=== PATIENT | male | born 1975 | race Caucasian/White ===

== ENCOUNTER → 2021-03-03 11:48 | Outpatient (BNVA) | payer OTHER, SELFPAY | PROVIDERS: Family Provider Nurse Practitioner; PCP Nurse Practitioner; Visit Provider Family Medicine | DX: Z20.822 Contact with and (suspected) exposure to COVID-19 (principal) | CPT/HCPCS: 87635 ==

== ENCOUNTER 2021-08-22 08:40 | Outpatient (CLI) | payer OTHER, SELFPAY ==
--- NOTE | 2021-08-22 08:58 | XR_ITS ---
WS: [id number] Thoracic spine, 3 views, 08/22/2021 Clinical Data: RIB PAIN Comparison: None. Findings: No compression fractures are seen. The disc heights are normal. The paravertebral regions are normal. There is osteoarthritis of the thoracic vertebral bodies from T5 through T12. There is a levoscoliosi s. XR/XR thoracic spine 3V* [id number] Impression: 1. 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 2. Negative for thoracic compression fracture.
--- NOTE | 2021-08-22 08:58 | XR_ITS ---
WS: [id number] Left rib detail, 3 views, 08/22/2021 Clinical Data: LEFT RIB PAIN Comparison: None. Findings: There is a fracture of the lateral aspect of the left seventh rib. There is an old healed fracture of the anterior aspect of the left 10th rib. No pneumothorax is seen. There is no subcutaneous emphysem a. No pleural thickening or pleural effusions are present on the left. XR/XR ribs LT 2V* [id number] Impression: 1. Probable new fracture of the lateral aspect of left seventh rib. 2. Old fracture of the anterior aspect of left 10th rib.
== END 2021-08-22 08:41 | disposition home or self-care (01) ==
PROVIDERS: PCP Nurse Practitioner; Visit Provider Chiropractor
DX: R07.81 Pleurodynia (principal); M47.814 Spondylosis without myelopathy or radiculopathy, thoracic region; M41.84 Other forms of scoliosis, thoracic region
CPT/HCPCS: 71100; 72072

== ENCOUNTER 2021-12-08 15:10 | Inpatient (IN) | payer OTHER, SELFPAY ==
[2021-12-08 15:28] VITALS: BMI 24.4
--- NOTE | 2021-12-08 15:33 | PC.NURSE ---
REPORT TO KATYA LEES- ADVISED THE VITALS WERE ATTEMPTED BUT DID NOT OBTAIN PATIENT IS SO RESTLESS AND UNABLE TO BE STILL ENOUGH TO OBTAIN
--- NOTE | 2021-12-08 15:37 | W.ED.ABDPA2 ---
HPI - Abdominal Pain General: Chief Complaint: ER Hold Stated Complaint: colon issue Time Seen by Provider: 12/08/21 15:37 History of Present Illness: HPI narrative: Mr. Gavin is a 46-year-old gentleman with history approximately 3 years ago of surgical resection of colon possibly secondary to diverticulitis who presents to the emergency department due to abdominal pain. Symptom onset was subacute approximately 3 hours prior to arrival without known specific provoking factors. He endorses multiple episodes of nonbilious and nonbloody emesis. He has not had a bowel movement since last night and is not currently passing flatus. Per he has had a few days worth of vomiting in the morning. Overall intensity symptoms is severe. Course has persisted. Denies other infectious symptoms or other focal changes. No other specific known exacerbating relieving factors identified. MD elicited complaint: abdominal pain Pertinent past history: diverticulitis and other Onset (ago): hour(s) Pain Consistency: constant Location: RLQ Severity: severe Quality: cramping and aching Radiation: none Migration to: no migration Exacerbating factors: eating Relieving factors: nothing Associated Symptoms: Reports change in bowel habits, nausea and vomiting Review of Systems General: Reports: 10 or more systems reviewed and unremarkable except in HPI and below GI: Reports: nausea, vomiting and change in bowel habits PFSH ED PFSH: Medical History (Updated 12/12/21 @ 12:27 by Sha Arthur MD) Diverticulitis HLD (hyperlipidemia) HTN (hypertension) Surgical History (Updated 12/12/21 @ 12:26 by Sha Arthur MD) H/O foot surgery Right -- crush injury -- had bone graft placed from hip History of partial colectomy Family History (Updated 12/08/21 @ 18:18 by Blaine Lu MD) Father Cancer Social History (Updated 12/12/21 @ 12:31 by Sha Arthur MD) Smoking and tobacco status: never smoked Alcohol intake: former Physical Exam Const: COMMON NORMALS: alert GENERAL APPEARANCE: in distress (pain) HENMT: COMMON NORMALS: normocephalic and atraumatic HEAD & SCALP: normocephalic and atraumatic THROAT: posterior oropharynx normal Eye: COMMON NORMALS: conjunctivae normal CONJUNCTIVA: Yes conjunctivae normal SCLERA: sclerae normal Neck/C-Spine: COMMON NORMALS: supple GENERAL: Yes trachea midline Resp: COMMON NORMALS: normal respiratory effort and clear to auscultation bilaterally EFFORT & INSPECTION: Yes able to speak in complete sentences and Yes tachypneic AUSCULTATION: clear to auscultation bilaterally Cardio: COMMON NORMALS: regular rhythm RATE: tachycardic RHYTHM: regular rhythm GI: COMMON NORMALS: Soft to palpation PALPATION: Yes Soft to palpation and No Tenderness to palpation present (GI) PERCUSSION: normal to percussion Extremity: GENERAL: Yes normal exam except as noted and No edema Neuro: COMMON NORMALS: moves all extremities SENSORIUM/ORIENTATION: Yes alert and No Orientation impaired Psych: COMMON NORMALS: mental status grossly normal and Normal thought process present THOUGHT PROCESS: Normal thought process present Course ED course: - Patient was seen and evaluated by me at bedside - Patient placed on cardiac monitors, IV access obtained - Initial evaluation notable for fairly significant distress due to abdominal pain. -Fluids, antiemetic, analgesia ordered - Labs notable for leukocytosis. Metabolic panel with evidence of dehydration, metabolic stress as noted in decreased bicarb and increased anion gap. Lipase is elevated. - Imaging notable for pancreatitis without other acute pathology - Upon serial reexamination after treatment the patient was somewhat improved though still remains tachycardic and has moderate abdominal pain to palpation - Based on patient history, evaluation, labs, and imaging as interpreted the most likely cause of the patient's condition is pancreatitis - The results of ED evaluation were discussed with the patient including plan for admission due to requirement for level of care not available if discharged to prevent significant worsening/deterioration. - Hospitalist service contacted and agreed to admit the patient. - Patient was admitted without further deterioration or significant events. Note: Click bubbles or prepopulated lopez in note writing are used for assistance with data collection and billing and are inherently more limited than narrative and other text portions of this note. Please use narrative for additional clinical history and defer to narrative/free test for any case of contradictory information. If information appears in only free text or click bubble it should be considered present or absent as reported. Please contact note scientific technical writer for clarifications of clinical information or contradictory information. MDM is a brief summary, contradictory or erroneous seeming information should be clarified and full note should be reviewed. Vital Signs: Vital signs: Vital Signs Temperature 98.0 F 12/13/21 20:00 Pulse Rate 70 12/13/21 20:00 Respiratory Rate 18 12/13/21 20:00 Blood Pressure 130/69 12/13/21 20:00 Pulse Oximetry 98 12/13/21 20:00 MDM - Abdominal Pain MDM Narrative Medical decision making narrative: 46-year-old gentleman with history of abdominal surgeries presenting with severe abdominal pain. ED evaluation reveals pancreatitis. Despite multiple rounds of medications unable to adequately control symptoms for discharge. Patient will be admitted to the hospital for further management of pancreatitis with severe symptoms. Medical Records Attestation: I reviewed the patient's medical records. Lab Data Attestation: I reviewed the patient's lab results. Result diagrams: 12/13/21 04:29 12/13/21 04:29 Labs: Lab Results 12/08/21 12/08/21 12/08/21 16:18 16:18 17:22 WBC 12.6 10^3/uL H 10^3/uL (4.0-10.0) RBC 3.99 10^6/uL L 10^6/uL (4.1-5.3) Hgb 15.8 g/dL g/dL (11.7-16.6) Hct 43.1 % % (42.0-52.0) MCV 108.0 fl H fl (80-94) MCH 39.6 pg H pg (28.0-34.0) MCHC 36.7 g/dL H g/dL (30.0-36.0) RDW 11.2 % L % (12.1-15.1) Plt Count 323 10^3/cmm 10^3/cmm (130-400) MPV 9.8 fL fL (7.4-10.4) Neut % (Auto) 86.3 % % Lymph % (Auto) 6.3 % % [place] % (Auto) 6.6 % % Eos % (Auto) 0.0 % % Baso % (Auto) 0.2 % % Neut # (Auto) 10.86 10^3/uL H 10^3/uL (1.8-7.7) Lymph # (Auto) 0.8 10^3/uL 10^3/uL (0.8-4.8) [place] # (Auto) 0.8 10^3/uL 10^3/uL (0.2-0.9) Eos # (Auto) 0.0 10^3/uL 10^3/uL (0.0-0.8) Baso # (Auto) 0.0 10^3/uL 10^3/uL (0.0-0.1) Nucleated RBC % (auto) 0 % % Nucleated RBCs # 0.0 /100WBC /100WBC Sodium 131 mmol/L L mmol/L (136-145) Potassium 4.1 mmol/L mmol/L (3.5-5.1) Chloride 95 mmol/L L mmol/L (98-107) Carbon Dioxide 13 mmol/L L mmol/L (22-29) Anion Gap 27.1 H (5-19) BUN 9 mg/dL mg/dL (6-20) Creatinine 1.1 mg/dL mg/dL (0.7-1.2) GFR Calculation 71.4 mL/min L mL/min (90-130) Glucose 125 mg/dL H mg/dL (65-115) Calculated Osmolality 272 mOsm/kg L mOsm/kg (285-295) Lactate Calcium 10.2 mg/dL mg/dL (8.5-10.5) Total Bilirubin 1.1 mg/dL mg/dL (0.15-1.2) AST 28 U/L U/L (0-40) ALT 26 U/L U/L (0-41) Alkaline Phosphatase 66 IU/L IU/L (40-130) Total Protein 6.6 g/dL g/dL (6.6-8.7) Albumin 4.1 g/dL g/dL (3.5-5.2) Globulin 2.5 g/dL g/dL (1.3-4.6) Lipase 424 U/L H U/L (13-60) Urine Color Urine Appearance Urine pH Ur Specific [place] Urine Protein Urine Glucose (UA) Urine Ketones Urine Blood Urine Nitrate Urine Bilirubin Urine Urobilinogen Ur Leukocyte Esterase SARS-CoV-2 Ag (Rapid) Negative (Negative) 12/08/21 12/08/21 17:22 17:44 WBC RBC Hgb Hct MCV MCH MCHC RDW Plt Count MPV Neut % (Auto) Lymph % (Auto) [place] % (Auto) Eos % (Auto) Baso % (Auto) Neut # (Auto) Lymph # (Auto) [place] # (Auto) Eos # (Auto) Baso # (Auto) Nucleated RBC % (auto) Nucleated RBCs # Sodium Potassium Chloride Carbon Dioxide Anion Gap BUN Creatinine GFR Calculation Glucose Calculated Osmolality Lactate 3.0 mmol/L H mmol/L (0.5-2.2) Calcium Total Bilirubin AST ALT Alkaline Phosphatase Total Protein Albumin Globulin Lipase Urine Color Dark yellow (Yellow) Urine Appearance Clear (CLEAR) Urine pH 7 (5-7) Ur Specific [place] 1.005 (1.005-1.030) Urine Protein Neg (Negative) Urine Glucose (UA) Norm (Normal) Urine Ketones 1+ H (Negative) Urine Blood Neg (Negative) Urine Nitrate Negative (Negative) Urine Bilirubin Neg (Negative) Urine Urobilinogen 1 mg/dL H mg/dL (Negative) Ur Leukocyte Esterase Negative (Negative) SARS-CoV-2 Ag (Rapid) Discharge Plan Discharge Patient Disposition: Placed in Observation Admit Provider: Blaine Lu Clinical Impression: Pancreatitis, Abdominal pain, Leukocytosis, Tachycardia Coding Level of Care Code ED Service Center Coordinator for Chg Fwd Exam Comprehensive
[2021-12-08 15:47] VITALS: BP 176/126; PULSE 110; RESP 30; TEMP 36.7; O2SAT 100
--- NOTE | 2021-12-08 15:50 | CTR_ITS ---
PROCEDURE INFORMATION: Exam: CT Abdomen And Pelvis With Contrast Exam date and time: 12/08/2021 3:50 PM Age: 46 years old Clinical indication: Abdominal pain; Generalized; Prior surgery; Surgery date: 6+ months; Surgery type: Partial colectomy; Patient HX: Abd pain x 1 day n, v; Additional info: Abdominal pain, n/v TECHNIQUE: Imaging protocol: Computed tomography of the abdomen and pelvis with contrast. Radiation optimization: All CT scans at this facility use at least one of these dose optimization techniques: automated exposure control; mA and/or kV adjustment per patient size (includes targeted exams where dose is matched to clinical indication); or iterative reconstruction. Contrast material: OMNI 300; Contrast volume: 95 ml; Contrast route: INTRAVENOUS (IV); COMPARISON: CT abdomen pelvis w con* [id number] 05/31/2018 9:05 AM RADIATION DOSE METRICS: Total DLP (mGy-cm): 1754.08 FINDINGS: Lungs: Calcified granuloma in the left upper lobe. Heart: Trace pericardial effusion. Liver: Diffuse fatty infiltration of the liver. Calcified granulomas. Gallbladder and bile ducts: Fluid distended gallbladder. No visible stones or wall thickening. The bile ducts are normal. Pancreas: The uncinate process and pancreatic head appear edematous with peripancreatic fat stranding. The body and tail of the pancreas appear normal. Stable benign calcification. Spleen: Calcified granulomas in the spleen. Adrenal glands: Normal. No mass. Kidneys and ureters: Cortical lesion in the left kidney is too small to characterize but is most likely a cyst. No follow-up imaging is recommended. The kidneys are otherwise normal. No calculus or hydronephrosis. Stomach and bowel: Partial resection of the sigmoid colon with sutures. Diverticulosis of the colon. No evidence for diverticulitis. The stomach and small bowel are unremarkable. No wall thickening or obstruction. Appendix: The appendix is visualized and is normal. Intraperitoneal space: No pneumoperitoneum. Retroperitoneal space: Fluid posterior to the duodenum and extending into the retroperitoneum and Casillas's space. Vasculature: Multiple calcified phleboliths in the pelvis. Lymph nodes: Unremarkable. No enlarged lymph nodes. Urinary bladder: Unremarkable as visualized. Reproductive: Coarse calcifications in a normal sized prostate. Bones/joints: Degenerative changes in the spine. No fracture. Old left rib fracture. Soft tissues: Umbilical hernia containing fat and a short loop of nonobstructed small bowel. CT/CT abdomen pelvis w con* [id number] IMPRESSION: 1. Findings are suspicious for acute pancreatitis involving the pancreatic head with retroperitoneal fluid and stranding. Less likely, this could represent duodenitis. Clinical correlation is recommended. 2. Diverticulosis of the colon without diverticulitis. COMMENTS: Consistent with the [employer]'s Incidental Findings Committee white paper (J Am Tenisha Radiol 2018): Any incidental renal lesion less than 1 cm or classified as too small to characterize, or any incidental cystic renal lesion characterized as simple-appearing, is likely benign. No follow-up imaging is recommended for these lesions per consensus recommendations based on imaging criteria.
[2021-12-08] MEDS: morphine 4 mg/mL SDV 1 mL IVP ×3 (16:18→20:48)
[2021-12-08] MEDS: sodium chloride 0.9% 1,000 ML 999 ML IV (16:18)
[2021-12-08] MEDS: ondansetron 2 mg/ML SDV 2 mL 4 MG IVP (16:18)
[2021-12-08 16:27] LABS: Basophils % 0.2 %; Hematocrit 43.1 % (42.0-52.0); Hemoglobin 15.8 g/dL (11.7-16.6); Lymphocytes # 0.8 10^3/uL (0.8-4.8); Lymphocytes % 6.3 %; Mean Corpuscular HGB Conc 36.7 g/dL (30.0-36.0); Mean Corpuscular Hemoglobin 39.6 pg (28.0-34.0); Mean Platelet Volume 9.8 fL (7.4-10.4); Monocytes # 0.8 10^3/uL (0.2-0.9); Monocytes % 6.6 %; Neutrophils # 10.86 10^3/uL (1.8-7.7); Neutrophils % 86.3 %; Nucleated Red Blood Cells % 0 %; Platelet Count 323 10^3/cmm (130-400); Red Blood Count 3.99 10^6/uL (4.1-5.3); Red Cell Distribution Width 11.2 % (12.1-15.1); White Blood Count 12.6 10^3/uL (4.0-10.0)
[2021-12-08 16:42] VITALS: BP 207/132; PULSE 110; RESP 28; O2SAT 100
[2021-12-08 16:44] LABS: Albumin Level 4.1 g/dL (3.5-5.2); Alkaline Phosphatase 66 IU/L (40-130); Anion Gap 27.1 (5-19); Aspartate Amino Transferase 28 U/L (0-40); Blood Urea Nitrogen 9 mg/dL (6-20); Calcium 10.2 mg/dL (8.5-10.5); Carbon Dioxide 13 mmol/L (22-29); Chloride 95 mmol/L (98-107); Globulin 2.5 g/dL (1.3-4.6); Glomerular Filtration Rate 71.4 mL/min (90-130); Glucose 125 mg/dL (65-115); Osmolality Calculated 272 mOsm/kg (285-295); Potassium 4.1 mmol/L (3.5-5.1); Sodium 131 mmol/L (136-145); Total Bilirubin 1.1 mg/dL (0.15-1.2); Total Protein 6.6 g/dL (6.6-8.7)
[2021-12-08] MEDS: iohexol 300 mg/mL 100 mL Btl IV (16:50)
[2021-12-08 16:55] LABS: Alanine Aminotransferase 26 U/L (0-41)
[2021-12-08 16:59] LABS: Lipase 424 U/L (13-60)
[2021-12-08 17:56] LABS: Add Urine Microscopic? NO; Charge for UA Resulting for Rev
[2021-12-08] MEDS: sodium chloride 0.9% 1,000 ML 125 ML IV (18:06)
--- NOTE | 2021-12-08 18:16 | PM.HP ---
Providers/Chief Complaint Primary Care Provider: KORTNEY Genao Chief Complaint: colon issue History of Present Illness Ozzie aGvin is a 46 year old male with a past past medical history of diverticulitis status post colectomy, who presents [facility] due to a few day history of abdominal pain, nausea, vomiting, feeling unwell. Patient tells me that for the last few days he has had diffuse abdominal pain, nausea, vomiting, feeling unwell. Last bowel movement was last night, he tells me that it was dark-colored. No lightheadedness, dizziness, chest pain, palpitations. His last drink of alcohol was a month ago. No recent history of steroid use. History of cholelithiasis. No diarrhea. No history of food poisoning. Has a history of hypertension, is on lisinopril. No fevers, no chills. Review of Systems Const: Reports: fatigue and malaise; Denies: fever(s) or chills Eyes: Denies: change in vision or blurry vision ENMT: Denies: nasal congestion Card: Denies: chest pain, palpitations or irregular heart rhythm Resp: Denies: dyspnea, productive cough, non-productive cough or wheezing GI: Reports: abdominal pain and nausea; Denies: vomiting, hematemesis, diarrhea, constipation, hematochezia or melena : Denies: flank pain, difficulty urinating, dysuria or urinary frequency Musc: Denies: neck pain or back pain Skin/Breast: Denies: rash Neuro: Denies: headache(s), dizziness or vertigo Psych: Denies: anxiety or depression Endo: Denies: polyuria Medications/Allergies Home Medications Medication Instructions Recorded Confirmed Last Taken Type [id number]-acetaminophen 2 cap PO BEDTIME PRN 12/08/21 12/08/21 12/07/21 History [NyQuil Liquicaps] lisinopril 10 mg PO DAILY 12/08/21 12/08/21 12/08/21 History omeprazole 20 mg PO DAILY 12/08/21 12/08/21 12/08/21 History Allergies Allergy/AdvReac Type Severity Reaction Status Date / Time No Known Allergies Allergy Verified 12/08/21 15:28 PFSH Acute PFSH: Medical History (Updated 12/08/21 @ 17:57 by Deshaun Alejandra MD) Diverticulitis HLD (hyperlipidemia) HTN (hypertension) Surgical History (Updated 12/08/21 @ 15:55 by Deshaun Alejandra MD) H/O foot surgery History of partial colectomy Family History (Updated 12/08/21 @ 18:18 by Blaine Lu MD) Father Cancer Social History (Updated 12/08/21 @ 15:55 by Deshaun Alejandra MD) Smoking and tobacco status: never smoked Vitals/I&O/Wt Last Vital Signs Temp 98.1 F 12/08/21 15:47 Pulse 110 H 12/08/21 16:42 Resp 28 H 12/08/21 16:42 BP 207/132 12/08/21 16:42 Pulse Ox 100 12/08/21 16:42 12/08/21 12/08/21 12/08/21 06:59 14:59 22:59 Intake Total 1000 / 1000 Balance 1000 / 1000 Weight last 48 hrs Weight 81.647 kg Physical Exam Const: COMMON NORMALS: no acute distress and patient oriented x3 GENERAL APPEARANCE: cooperative and comfortable HENMT: COMMON NORMALS: normocephalic HEAD & SCALP: normocephalic Eye: COMMON NORMALS: Equal, round and reactive pupils present and EOMs intact bilaterally GENERAL EYE: appearance normal, both eyes and all related structures PUPIL: Yes Equal, round and reactive pupils present Neck/C-Spine: COMMON NORMALS: full ROM and no lymphadenopathy THYROID: Thyroid normal Lymph: LYMPHATIC: no lymphadenopathy noted Resp: COMMON NORMALS: normal respiratory effort, No retractions, No use of accessory muscles and clear to auscultation bilaterally AUSCULTATION: clear to auscultation bilaterally Cardio: COMMON NORMALS: regular rate, regular rhythm, S1 normal heart sound present, S2 normal heart sound present, No gallops present (Cardio), No clicks present (Cardio) and No murmurs present (Cardio) RATE: regular rate RHYTHM: regular rhythm HEART SOUNDS: S1 normal heart sound present and S2 normal heart sound present GI: INSPECTION: Yes normal to inspection and Yes abdominal distension AUSCULTATION: Yes Hyperactive bowel sounds present PALPATION: Yes Tenderness to palpation present (GI) (Diffuse abdominal tenderness) Extremity: COMMON NORMALS: normal to inspection, full ROM and no pedal edema Neuro: COMMON NORMALS: patient oriented x3, CN's II-XII intact bilaterally, moves all extremities and no focal motor deficits Psych: COMMON NORMALS: mental status grossly normal, Normal thought process present and cooperative THOUGHT PROCESS: Normal thought process present Data : 12/08/21 16:18 12/08/21 16:18 A&P Assessment and plan (1) Pancreatitis: Acute pancreatitis, duodenitis Admit to general medical floors -N.p.o. -IV fluids -Morphine for pain control -Zosyn for antibiotic coverage -Serial abdominal exams -Stool studies -Full code -Lovenox for DVT prophylaxis Hypertension, elevated blood pressure likely secondary to pain, labetalol as needed for hypertension Hyponatremia, secondary to dehydration, IV fluids Status: Acute (2) Tachycardia: Status: Acute (3) HLD (hyperlipidemia): Status: Acute (4) HTN (hypertension): Status: Acute Attestations Medical Necessity Statement*: Patient requires hospitalization for acute pancreatitis, outpatient with observation Coding Level of Care Code Acute Volcanology Teacher for [facility] Fwd Diagnoses Pancreatitis K85.90 Tachycardia R00.0 HLD (hyperlipidemia) E78.5 HTN (hypertension) I10
[2021-12-08 18:21] LABS: SARS Covid-2 Antigen Negative (Negative)
[2021-12-08 18:30] VITALS: BP 163/97; PULSE 113; RESP 20; O2SAT 97
[2021-12-08 18:32] LABS: Bilirubin Urine Neg (Negative); Blood Urine Neg (Negative); Glucose Urine UA Norm (Normal); Ketones Urine 1+ (Negative); Leukocyte Esterase Urine Negative (Negative); Nitrate Urine Negative (Negative); Protein Urine Neg (Negative); Specific Gravity, Urine 1.005 (1.005-1.030); Urine Appearance Clear (CLEAR); Urine Color Dark Yellow (Yellow); Urobilinogen Urine 1 mg/dL (Negative); pH Urine 7 (5-7)
[2021-12-08 20:48] VITALS: RESP 18
[2021-12-08] MEDS: piperacillin-tazobactam 3.375 GM in sodium chloride 0.9% (plus) 50 ML IV (23:51)
[2021-12-08] MEDS: pantoprazole 40 mg SDV IVP (23:51)
[2021-12-08] MEDS: enoxaparin 40 mg/0.4 mL Syringe SUBCUT (23:51)
[2021-12-09] VITALS (10 sets, daily range): BP systolic 135–163; BP diastolic 88–97; PULSE 70–90; RESP 16–22; TEMP 37.1–37.3; O2SAT 97–99
--- NOTE | 2021-12-09 01:49 | PC.NURSE ---
pt resting quietly
[2021-12-09] MEDS: sodium chloride 0.9% 1,000 ML 125 ML IV (03:43)
[2021-12-09] MEDS: piperacillin-tazobactam 3.375 GM in sodium chloride 0.9% (plus) 50 ML IV ×3 (06:22→22:27)
--- NOTE | 2021-12-09 06:54 | PC.NURSE ---
report given to Laurie LEES
[2021-12-09 07:26] LABS: Basophils % 0.2 %; Eosinophils # 0.1 10^3/uL (0.0-0.8); Eosinophils % 0.8 %; Hemoglobin 14.6 g/dL (11.7-16.6); Lymphocytes # 0.8 10^3/uL (0.8-4.8); Lymphocytes % 9.2 %; Mean Corpuscular HGB Conc 35.6 g/dL (30.0-36.0); Mean Corpuscular Hemoglobin 40.8 pg (28.0-34.0); Mean Corpuscular Volume 114.5 fl (80-94); Mean Platelet Volume 9.6 fL (7.4-10.4); Monocytes # 0.7 10^3/uL (0.2-0.9); Monocytes % 7.9 %; Neutrophils # 6.88 10^3/uL (1.8-7.7); Neutrophils % 81.5 %; Nucleated Red Blood Cells % 0 %; Platelet Count 229 10^3/cmm (130-400); Red Blood Count 3.58 10^6/uL (4.1-5.3); Red Cell Distribution Width 11.6 % (12.1-15.1); White Blood Count 8.5 10^3/uL (4.0-10.0)
[2021-12-09 07:43] LABS: Alanine Aminotransferase 17 U/L (0-41); Albumin Level 3.6 g/dL (3.5-5.2); Alkaline Phosphatase 57 IU/L (40-130); Anion Gap 15.5 (5-19); Aspartate Amino Transferase 15 U/L (0-40); Blood Urea Nitrogen 10 mg/dL (6-20); C Reactive Protein 30.8 mg/L (0.0-4.9); Calcium 8.4 mg/dL (8.5-10.5); Carbon Dioxide 22 mmol/L (22-29); Chloride 102 mmol/L (98-107); Glomerular Filtration Rate 79.8 mL/min (90-130); Glucose 107 mg/dL (65-115); Osmolality Calculated 280 mOsm/kg (285-295); Potassium 4.5 mmol/L (3.5-5.1); Sodium 135 mmol/L (136-145); Total Bilirubin 1.5 mg/dL (0.15-1.2); Total Protein 5.6 g/dL (6.6-8.7)
[2021-12-09 07:45] LABS: Lipase 234 U/L (13-60)
--- NOTE | 2021-12-09 09:42 | PM.PN ---
Subjective Subjective: Interval history: Patient is doing maybe a little bit better. Still having some significant abdominal pain. No nausea or vomiting. No fevers or chills. Medications: Reviewed: Yes Medication Review Details: Current Medications Enoxaparin Sodium (Enoxaparin 40 Mg/0.4 Ml Syringe) 40 mg SUBCUT Q24H [facility] Last Admin: 12/08/21 23:51 Dose: 40 mg Documented by: Sodium Chloride (Sodium Chloride 0.9%) 1,000 mls @ 125 mls/hr IV .Q8H [facility] Stop: 12/09/21 17:59 Last Admin: 12/09/21 03:43 Dose: 125 mls/hr Documented by: Sodium Chloride (Sodium Chloride 0.9%) 1,000 mls @ 75 mls/hr IV .[id number] [facility] Piperacillin Sod/Tazobactam (Sod 3.375 gm/ Sodium Chloride) 50 mls @ 12.5 mls/hr IV Q8H [facility]; Protocol Last Admin: 12/09/21 06:22 Dose: 12.5 mls/hr Documented by: Labetalol HCl (Labetalol 5 Mg/Ml Sdv 20ml) 10 mg IVP Q4H PRN PRN Reason: FOR SBP>180 or DBP>180 hold if hr<60 Morphine Sulfate (Morphine 4 Mg/Ml Sdv 1 Ml) 4 mg IVP Q1H PRN PRN Reason: pain Last Admin: 12/08/21 20:48 Dose: 4 mg Documented by: Ondansetron HCl (Ondansetron 2 Mg/Ml Sdv 2 Ml) 4 mg IVP Q8H PRN PRN Reason: vomiting, or N/V if npo Pantoprazole Sodium (Pantoprazole 40 Mg Sdv) 40 mg IVP Q12H [facility] Last Admin: 12/08/21 23:51 Dose: 40 mg Documented by: Vitals/I&O/Wt Last Vital Signs Temp 98.1 F 12/08/21 15:47 Pulse 77 12/09/21 07:23 Resp 20 H 12/09/21 07:23 BP 152/93 12/09/21 07:23 Pulse Ox 98 12/09/21 07:23 12/08/21 12/09/21 12/09/21 22:59 06:59 14:59 Intake Total 1000 / 2050.000 1050.000 / 2050.000 Balance 1000 / 2050.000 1050.000 / 2050.000 Weight last 48 hrs Weight 180 lb Physical Exam Narrative: EXAM NARRATIVE: General: No acute distress, Alert. Well nourished. Heart: Regular rate and rhythm. No murmurs, rubs or gallops. Normal capillary refill. Lungs: Clear to auscultation. No wheezes, rhonchi or rales. Abdomen: Positive bowel sounds. Has some significant abdominal pain in the right lower quadrant and epigastric area, non-distended. No hepatosplenomegaly. No gaurding or rebound. Extremities: No clubbing, cyanosis, or edema. Negative Yair's Data : 12/09/21 07:07 12/09/21 07:07 A&P Assessment and plan (1) Pancreatitis: - 46-year-old gentleman admitted with acute pancreatitis most likely secondary to alcohol, although it has been a couple of weeks since he drank according to his report. No evidence of an obstructed duct on CT scan. He is improving some. Electrolytes have normalized. CBC is normal. Still having significant pain. Lipase is improved some. We will continue with IV fluids. IV pain medications. Keep him n.p.o. for now. Continue with IV antibiotics Status: Acute (2) HTN (hypertension): Status: Acute Attestations Medical Necessity Statement*: 46-year-old gentleman with pancreatitis requiring continued inpatient IV treatments and monitoring. Coding Level of Care Code Acute Cloak Room Attendant for [facility] Diagnoses Pancreatitis K85.90 HTN (hypertension) I10
[2021-12-09] MEDS: morphine 4 mg/mL SDV 1 mL IVP ×5 (10:20→22:27)
[2021-12-09] MEDS: pantoprazole 40 mg SDV IVP ×2 (10:21→22:27)
[2021-12-09] MEDS: sodium chloride 0.9% 1,000 ML 75 ML IV ×2 (12:00→22:38)
[2021-12-09] MEDS: ondansetron 2 mg/ML SDV 2 mL 4 MG IVP (18:07)
[2021-12-09] MEDS: enoxaparin 40 mg/0.4 mL Syringe SUBCUT (22:27)
[2021-12-10] VITALS (13 sets, daily range): BP systolic 149–167; BP diastolic 87–95; PULSE 77–89; RESP 16–24; TEMP 36.4–37; O2SAT 95–100
[2021-12-10] MEDS: morphine 4 mg/mL SDV 1 mL IVP ×7 (00:56→21:24)
[2021-12-10 05:31] LABS: Basophils % 0.4 %; Eosinophils # 0.1 10^3/uL (0.0-0.8); Eosinophils % 1.2 %; Hematocrit 40.9 % (42.0-52.0); Hemoglobin 14.2 g/dL (11.7-16.6); Lymphocytes # 0.8 10^3/uL (0.8-4.8); Lymphocytes % 9.2 %; Mean Corpuscular HGB Conc 34.7 g/dL (30.0-36.0); Mean Corpuscular Hemoglobin 39.8 pg (28.0-34.0); Mean Corpuscular Volume 114.6 fl (80-94); Mean Platelet Volume 9.9 fL (7.4-10.4); Monocytes # 0.7 10^3/uL (0.2-0.9); Monocytes % 7.5 %; Neutrophils # 7.43 10^3/uL (1.8-7.7); Nucleated Red Blood Cells % 0 %; Platelet Count 239 10^3/cmm (130-400); Red Blood Count 3.57 10^6/uL (4.1-5.3); Red Cell Distribution Width 11.2 % (12.1-15.1); White Blood Count 9.2 10^3/uL (4.0-10.0)
[2021-12-10] MEDS: piperacillin-tazobactam 3.375 GM in sodium chloride 0.9% (plus) 50 ML IV ×3 (05:32→21:17)
[2021-12-10 05:54] LABS: Alanine Aminotransferase 14 U/L (0-41); Albumin Level 3.5 g/dL (3.5-5.2); Alkaline Phosphatase 58 IU/L (40-130); Aspartate Amino Transferase 16 U/L (0-40); Blood Urea Nitrogen 11 mg/dL (6-20); C Reactive Protein 78.5 mg/L (0.0-4.9); Calcium 9.3 mg/dL (8.5-10.5); Carbon Dioxide 19 mmol/L (22-29); Chloride 100 mmol/L (98-107); Creatinine Clr Calc Pharmacy 112.4711; Globulin 2.5 g/dL (1.3-4.6); Glomerular Filtration Rate 90.1 mL/min (90-130); Glucose 93 mg/dL (65-115); Lipase 129 U/L (13-60); Magnesium 1.9 mg/dL (1.7-2.3); Osmolality Calculated 277 mOsm/kg (285-295); Phosphorus 3.8 mg/dL (2.5-4.5); Sodium 134 mmol/L (136-145)
--- NOTE | 2021-12-10 07:13 | XRR_ITS ---
PROCEDURE INFORMATION: Exam: XR Abdomen Exam date and time: 12/10/2021 7:13 AM Age: 46 years old Clinical indication: Abdominal pain; Generalized; Prior surgery; Surgery date: 6+ months; Surgery type: Colectomy; Additional info: Abdominal pain abdominal pain TECHNIQUE: Imaging protocol: XR of the abdomen. Views: Frontal supine view of the abdomen. 1 View. COMPARISON: CT abdomen pelvis w con* [id number] 12/08/2021 4:51 PM FINDINGS: Gastrointestinal tract: Mild diffuse distention of the small bowel loops and colon. The small bowel loops measure up to 2.8 cm in transverse dimension. Bones/joints: Unremarkable. XR/XR KUB portable [id number] IMPRESSION: Mild distension of the small bowel and colon. Given findings on recent CT this most likely relates to ileus.
--- NOTE | 2021-12-10 07:34 | P.PN_ITS ---
Subjective Subjective: Interval history: Patient was doing decent enough yesterday but seems to be doing worse this morning. He thinks he is really constipated needs to have a bowel movement. Asking for some laxatives. Having quite a bit of pain and discomfort. No nausea or vomiting. No fevers or chills. Medications: Reviewed: Yes Medication Review Details: Current Medications Enoxaparin Sodium (Enoxaparin 40 Mg/0.4 Ml Syringe) 40 mg SUBCUT Q24H [facility] Last Admin: 12/08/21 23:51 Dose: 40 mg Documented by: Sodium Chloride (Sodium Chloride 0.9%) 1,000 mls @ 125 mls/hr IV .Q8H [facility] Stop: 12/09/21 17:59 Last Admin: 12/09/21 03:43 Dose: 125 mls/hr Documented by: Sodium Chloride (Sodium Chloride 0.9%) 1,000 mls @ 75 mls/hr IV .[id number] [facility] Piperacillin Sod/Tazobactam (Sod 3.375 gm/ Sodium Chloride) 50 mls @ 12.5 mls/hr IV Q8H [facility]; Protocol Last Admin: 12/09/21 06:22 Dose: 12.5 mls/hr Documented by: Labetalol HCl (Labetalol 5 Mg/Ml Sdv 20ml) 10 mg IVP Q4H PRN PRN Reason: FOR SBP>180 or DBP>180 hold if hr<60 Morphine Sulfate (Morphine 4 Mg/Ml Sdv 1 Ml) 4 mg IVP Q1H PRN PRN Reason: pain Last Admin: 12/08/21 20:48 Dose: 4 mg Documented by: Ondansetron HCl (Ondansetron 2 Mg/Ml Sdv 2 Ml) 4 mg IVP Q8H PRN PRN Reason: vomiting, or N/V if npo Pantoprazole Sodium (Pantoprazole 40 Mg Sdv) 40 mg IVP Q12H [facility] Last Admin: 12/08/21 23:51 Dose: 40 mg Documented by: Vitals/I&O/Wt Last Vital Signs Temp 97.6 F 12/10/21 07:33 Pulse 83 12/10/21 07:33 Resp 18 12/10/21 07:33 BP 158/87 12/10/21 07:33 Pulse Ox 96 12/10/21 07:33 12/09/21 12/10/21 12/10/21 22:59 06:59 14:59 Intake Total 575 / 1765 140 / 1765 Output Total 300 / 500 200 / 500 Balance 275 / 1265 -60 / 1265 Weight last 48 hrs Weight 180 lb Physical Exam Narrative: EXAM NARRATIVE: General: No acute distress, Alert. Well nourished. Heart: Regular rate and rhythm. No murmurs, rubs or gallops. Normal capillary refill. Lungs: Clear to auscultation. No wheezes, rhonchi or rales. Abdomen: Positive bowel sounds. Abdomen is to this morning and more distended. No rebound or guarding.. No hepatosplenomegaly. No gaurding. Extremities: No clubbing, cyanosis, or edema. Negative Yair's Data : 12/10/21 04:41 12/10/21 04:41 A&P Assessment and plan (1) Pancreatitis: - 46-year-old gentleman admitted with acute pancreatitis most likely secondary to alcohol, although it has been a couple of weeks since he drank according to his report. -Lipase and vital signs all seem to be improved this morning. Clinically though his abdomen does seem to be a bit more distended and more tender. He is more uncomfortable. May just be from constipation but we will go ahead and get a KUB this morning to look for any signs of obstruction. Also proceed with milk of magnesia and enemas for constipation. Hold off on advancing his diet at this time. Continue with IV pain medications. Status: Acute (2) HTN (hypertension): Status: Acute Attestations Medical Necessity Statement*: Patient is a requiring continued inpatient treatment and monitoring. Coding Level of Care Code Acute Surgical Consultant for [facility] Diagnoses Pancreatitis K85.90 HTN (hypertension) I10
[2021-12-10] MEDS: magnesium hydroxide 30 mL UDC PO ×2 (07:50→18:27)
[2021-12-10] MEDS: pantoprazole 40 mg SDV IVP ×2 (07:50→21:16)
[2021-12-10] MEDS: sodium chloride 0.9% 1,000 ML 75 ML IV ×3 (07:51→23:46)
[2021-12-10 11:56] LABS: Bilirubin Urine 1+ (Negative); Blood Urine Neg (Negative); Glucose Urine UA Norm (Normal); Ketones Urine 1+ (Negative); Leukocyte Esterase Urine Negative (Negative); Nitrate Urine Negative (Negative); Protein Urine 1+ (Negative); Urine Appearance Turbid (CLEAR); Urine Color Orange (Yellow); Urobilinogen Urine 1 mg/dL (Negative); pH Urine 5 (5-7)
[2021-12-10 11:57] LABS: Add Urine Culture? No; Amorphous Sediment Urine 4+ /hpf; Bacteria Urine TRACE /hpf
[2021-12-10] MEDS: Fleet Enema 133 mL Enema PR (13:27)
[2021-12-10] MEDS: enoxaparin 40 mg/0.4 mL Syringe SUBCUT (21:17)
[2021-12-10] MEDS: ondansetron 2 mg/ML SDV 2 mL 4 MG IVP (21:24)
[2021-12-11] VITALS (8 sets, daily range): BP systolic 144–163; BP diastolic 67–91; PULSE 77–92; RESP 17–20; TEMP 36.6–37; O2SAT 97–99
[2021-12-11] MEDS: morphine 4 mg/mL SDV 1 mL IVP ×3 (01:50→12:03)
--- NOTE | 2021-12-11 02:31 | PC.NURSE ---
Pt has had approx. 150 mls light green/mucous emesis. States he has drainage down his throat & is making him sick to his stomach. Also urinated only 50 mls harriet colored urine in urinal. Bladder scan reveals approx 100 mls in bladder.
[2021-12-11 05:56] LABS: Basophils % 0.4 %; Eosinophils # 0.1 10^3/uL (0.0-0.8); Hematocrit 36.6 % (42.0-52.0); Hemoglobin 12.6 g/dL (11.7-16.6); Lymphocytes # 0.8 10^3/uL (0.8-4.8); Lymphocytes % 9.8 %; Mean Corpuscular HGB Conc 34.4 g/dL (30.0-36.0); Mean Corpuscular Hemoglobin 40.1 pg (28.0-34.0); Mean Corpuscular Volume 116.6 fl (80-94); Monocytes # 0.7 10^3/uL (0.2-0.9); Monocytes % 8.7 %; Neutrophils # 6.62 10^3/uL (1.8-7.7); Neutrophils % 79.7 %; Nucleated Red Blood Cells % 0 %; Platelet Count 235 10^3/cmm (130-400); Red Blood Count 3.14 10^6/uL (4.1-5.3); Red Cell Distribution Width 11.6 % (12.1-15.1); White Blood Count 8.3 10^3/uL (4.0-10.0)
[2021-12-11] MEDS: ondansetron 2 mg/ML SDV 2 mL 4 MG IVP ×2 (06:07→16:07)
[2021-12-11] MEDS: piperacillin-tazobactam 3.375 GM in sodium chloride 0.9% (plus) 50 ML IV ×3 (06:08→22:26)
[2021-12-11 06:17] LABS: Alanine Aminotransferase 12 U/L (0-41); Albumin Level 3.2 g/dL (3.5-5.2); Alkaline Phosphatase 47 IU/L (40-130); Aspartate Amino Transferase 13 U/L (0-40); Blood Urea Nitrogen 11 mg/dL (6-20); C Reactive Protein 63.4 mg/L (0.0-4.9); Calcium 9.1 mg/dL (8.5-10.5); Carbon Dioxide 18 mmol/L (22-29); Chloride 104 mmol/L (98-107); Globulin 2.4 g/dL (1.3-4.6); Glomerular Filtration Rate 103.2 mL/min (90-130); Glucose 85 mg/dL (65-115); Lipase 79 U/L (13-60); Magnesium 2.3 mg/dL (1.7-2.3); Osmolality Calculated 283 mOsm/kg (285-295); Phosphorus 3.4 mg/dL (2.5-4.5); Sodium 137 mmol/L (136-145); Total Bilirubin 1.2 mg/dL (0.15-1.2); Total Protein 5.6 g/dL (6.6-8.7)
[2021-12-11] MEDS: sodium chloride 0.9% 1,000 ML 150 ML IV ×3 (06:56→22:26)
[2021-12-11] MEDS: pantoprazole 40 mg SDV IVP ×2 (09:20→20:56)
[2021-12-11] MEDS: magnesium citrate Btl 296 mL 148 ML PO (13:29)
--- NOTE | 2021-12-11 17:02 | P.PN_ITS ---
Subjective Subjective: Interval history: Wishes to advance diet today to clears. Passing flatus, had 2 small BM overnight, wishes to avoid morphine Medications: Reviewed: Yes Medication Review Details: Current Medications Enoxaparin Sodium (Enoxaparin 40 Mg/0.4 Ml Syringe) 40 mg SUBCUT Q24H [facility] Last Admin: 12/08/21 23:51 Dose: 40 mg Documented by: Sodium Chloride (Sodium Chloride 0.9%) 1,000 mls @ 125 mls/hr IV .Q8H [facility] Stop: 12/09/21 17:59 Last Admin: 12/09/21 03:43 Dose: 125 mls/hr Documented by: Sodium Chloride (Sodium Chloride 0.9%) 1,000 mls @ 75 mls/hr IV .[id number] [facility] Piperacillin Sod/Tazobactam (Sod 3.375 gm/ Sodium Chloride) 50 mls @ 12.5 mls/hr IV Q8H [facility]; Protocol Last Admin: 12/09/21 06:22 Dose: 12.5 mls/hr Documented by: Labetalol HCl (Labetalol 5 Mg/Ml Sdv 20ml) 10 mg IVP Q4H PRN PRN Reason: FOR SBP>180 or DBP>180 hold if hr<60 Morphine Sulfate (Morphine 4 Mg/Ml Sdv 1 Ml) 4 mg IVP Q1H PRN PRN Reason: pain Last Admin: 12/08/21 20:48 Dose: 4 mg Documented by: Ondansetron HCl (Ondansetron 2 Mg/Ml Sdv 2 Ml) 4 mg IVP Q8H PRN PRN Reason: vomiting, or N/V if npo Pantoprazole Sodium (Pantoprazole 40 Mg Sdv) 40 mg IVP Q12H [facility] Last Admin: 12/08/21 23:51 Dose: 40 mg Documented by: Vitals/I&O/Wt Last Vital Signs Temp 98.3 F 12/11/21 16:00 Pulse 83 12/11/21 16:00 Resp 18 12/11/21 16:00 BP 148/83 12/11/21 16:00 Pulse Ox 99 12/11/21 16:00 12/11/21 12/11/21 12/11/21 06:59 14:59 22:59 Intake Total 1796.25 / 3235.00 1290 / 1290 Output Total 200 / 600 Balance 1596.25 / 2635.00 1290 / 1290 Physical Exam Narrative: EXAM NARRATIVE: GEN: Awake, alert and oriented, no acute distress CVS: S1S2 N RS: CTA B/L Abd: Soft, mildly distended, Bs + TRUCK SHOP SUPERVISOR: no focal neuro deficits Data : 12/11/21 04:13 12/11/21 04:13 A&P Assessment and plan (1) Pancreatitis: - 46-year-old gentleman admitted with acute pancreatitis most likely secondary to alcohol, although it has been a couple of weeks since he drank according to his report. - Clinically improving though has had pooor passage of flatus and feces. States MOM and enema did not help. Mag citrate ordered today. X ray abdomen with ileus. - Wishes to avoid morphine as makes him nauseous - change pain control to toradol - trial mag citrate today - trial of clears - if worsens, will obtain Ct abdomen and may need NGT if worsening ileus Status: Acute (2) HTN (hypertension): Status: Acute Attestations Medical Necessity Statement*: persisting ileus, advance diet slowly, assess for tolerance Coding Level of Care Code Acute Veterinary Radiologist for [facility] Diagnoses Pancreatitis K85.90 HTN (hypertension) I10
[2021-12-11] MEDS: ketorolac 30 mg/mL INJ 15 MG IVP (17:54)
[2021-12-11] MEDS: enoxaparin 40 mg/0.4 mL Syringe SUBCUT (20:56)
[2021-12-12 00:34] VITALS: BP 124/78; PULSE 77; RESP 16; TEMP 36.9; O2SAT 98
[2021-12-12] MEDS: ketorolac 30 mg/mL INJ 15 MG IVP ×2 (02:55→10:55)
--- NOTE | 2021-12-12 04:00 | XR_ITS ---
WS: [id number] Portable AP upright chest, 12/12/2021 Clinical Data: assess for pleural effusion Comparison: Acute abdomen series, 05/31/2018. Findings: No nodules, masses or effusions are seen. The heart is enlarged. The pulmonary vascularity is not increased. No pneumonia or pneumothorax is seen. There is pleural thickening in both lower ple ural spaces. There is dilated colon in the upper abdomen. XR/XR chest 1V portable [id number] Impression: 1. Cardiomegaly but no definite pleural effusion. 2. Probable colonic ileus.
[2021-12-12 05:26] VITALS: BP 121/81; PULSE 75; RESP 16; TEMP 36.8; O2SAT 98
[2021-12-12] MEDS: sodium chloride 0.9% 1,000 ML 150 ML IV (05:36)
[2021-12-12] MEDS: piperacillin-tazobactam 3.375 GM in sodium chloride 0.9% (plus) 50 ML IV ×2 (05:36→17:16)
[2021-12-12 06:19] LABS: Basophils % 0.6 %; Eosinophils # 0.2 10^3/uL (0.0-0.8); Eosinophils % 2.9 %; Lymphocytes # 1.1 10^3/uL (0.8-4.8); Lymphocytes % 14.7 %; Mean Corpuscular HGB Conc 34.3 g/dL (30.0-36.0); Mean Corpuscular Hemoglobin 39.2 pg (28.0-34.0); Mean Corpuscular Volume 114.4 fl (80-94); Mean Platelet Volume 10.1 fL (7.4-10.4); Monocytes # 0.7 10^3/uL (0.2-0.9); Monocytes % 9.2 %; Neutrophils # 5.16 10^3/uL (1.8-7.7); Neutrophils % 72.3 %; Nucleated Red Blood Cells % 0 %; Platelet Count 251 10^3/cmm (130-400); Red Blood Count 3.06 10^6/uL (4.1-5.3); Red Cell Distribution Width 11.3 % (12.1-15.1); White Blood Count 7.1 10^3/uL (4.0-10.0)
[2021-12-12 06:38] LABS: Alanine Aminotransferase 9 U/L (0-41); Albumin Level 3.1 g/dL (3.5-5.2); Alkaline Phosphatase 51 IU/L (40-130); Anion Gap 16.5 (5-19); Aspartate Amino Transferase 13 U/L (0-40); Blood Urea Nitrogen 12 mg/dL (6-20); Calcium 8.3 mg/dL (8.5-10.5); Carbon Dioxide 18 mmol/L (22-29); Chloride 101 mmol/L (98-107); Creatinine Clr Calc Pharmacy 112.4711; Globulin 2.1 g/dL (1.3-4.6); Glomerular Filtration Rate 90.1 mL/min (90-130); Glucose 78 mg/dL (65-115); Osmolality Calculated 273 mOsm/kg (285-295); Potassium 3.5 mmol/L (3.5-5.1); Sodium 132 mmol/L (136-145); Total Bilirubin 0.9 mg/dL (0.15-1.2); Total Protein 5.2 g/dL (6.6-8.7)
[2021-12-12 07:53] VITALS: BP 123/70; PULSE 76; RESP 18; TEMP 36.7; O2SAT 94
[2021-12-12] MEDS: fluticasone nasal spray 16gm Btl 1 SPRAY NASAL (08:11)
[2021-12-12] MEDS: ondansetron 2 mg/ML SDV 2 mL 4 MG IVP (08:12)
[2021-12-12] MEDS: pantoprazole 40 mg SDV IVP ×2 (08:12→22:48)
--- NOTE | 2021-12-12 08:51 | XR_ITS ---
WS: [id number] KUB, portable AP supine, 12/12/2021 Clinical Data: SBO Comparison: KUB, 12/10/2021. Findings: No abnormal intraabdominal masses or calcifications are seen. There is marked dilatation of the small bowel.A central small bowel loop measures 8.0 cm. XR/XR abdomen 1V* [id number] Impression: Worsening small bowel obstruction.
[2021-12-12 10:52] VITALS: BP 157/92; PULSE 77; RESP 18; TEMP 36.4; O2SAT 100
--- NOTE | 2021-12-12 12:25 | PM.CONSULT ---
Providers/Reason For Consult Consulting Physician/Specialty*: General Surgery Sha Arthur MD Reason for Consult*: Abdominal distention, possible small bowel obstruction by x-ray. Attending Physician: Sandy Unger MD Primary Care Provider: KORTNEY Genao History of Present Illness History of Present Illness Ozzie Gavin is a 46 year old male recently admitted with what appeared to be acute pancreatitis. The patient says he has a history of drinking alcohol but has been about 3 weeks since he did so. He eventually was felt to be somewhat constipated and so has been undergoing some oral laxative administration in addition to some enemas. He says that it ended up working but he is only had small bowel movements. He is still passing flatus and says he started passing more flatus again just this morning. A follow-up plain film was done this morning and was interpreted by the radiologist as worsening small bowel obstruction. Review of Systems General: Reports: 10 or more systems reviewed and unremarkable except in HPI and below Const: Denies: fever(s) GI: Reports: abdominal pain and bloating Medications/Allergies Home Medications Medication Instructions Recorded Confirmed Last Taken Type wjatoqziaa-isvsfqyyjkkagog-yrgggssijvahfidk-acetaminophen 2 cap PO BEDTIME PRN 12/08/21 12/08/21 12/07/21 History capsule lisinopril 10 mg tablet 10 mg PO DAILY 12/08/21 12/08/21 12/08/21 History omeprazole 20 mg capsule,delayed 20 mg PO DAILY 12/08/21 12/08/21 12/08/21 History release Allergies Allergy/AdvReac Type Severity Reaction Status Date / Time No Known Allergies Allergy Verified 12/08/21 15:28 Current Medications Generic Name Dose Route Start Last Admin Trade Name Freq PRN Reason Stop Dose Admin Enoxaparin Sodium 40 mg 12/08/21 21:56 12/11/21 20:56 Enoxaparin 40 Mg/0.4 Ml Syringe SUBCUT 40 mg Q24H BURAK Administration Fluticasone Propionate 1 spray 12/12/21 09:00 12/12/21 08:11 Fluticasone Nasal [place] 16gm Btl NASAL 1 spray DAILY BURAK Administration Piperacillin Sod/Tazobactam 50 mls @ 12.5 mls/hr 12/08/21 22:00 12/12/21 09:36 Sod 3.375 gm/ Sodium Chloride IV Infused Q8H [facility]AK Infusion Protocol As Directed Ketorolac Tromethamine 15 mg 12/11/21 12:55 12/12/21 10:55 Ketorolac 30 Mg/Ml Inj IVP 12/16/21 12:54 15 mg Q8H PRN Administration MODERATE PAIN Magnesium Hydroxide 30 ml 12/10/21 07:13 12/10/21 18:27 Magnesium Hydroxide 30 Ml Udc PO 30 ml BID PRN Administration CONSTIPATION Ondansetron HCl 4 mg 12/08/21 21:56 12/12/21 08:12 Ondansetron 2 Mg/Ml Sdv 2 Ml IVP 4 mg Q8H PRN Administration vomiting, or N/V if npo Pantoprazole Sodium 40 mg 12/08/21 21:56 12/12/21 08:12 Pantoprazole 40 Mg Sdv IVP 40 mg Q12H [facility] Administration PFSH Acute PFSH: Medical History (Updated 12/12/21 @ 12:27 by Sha Arthur MD) Diverticulitis HLD (hyperlipidemia) HTN (hypertension) Surgical History (Updated 12/12/21 @ 12:26 by Sha Arthur MD) H/O foot surgery Right -- crush injury -- had bone graft placed from hip History of partial colectomy Family History (Updated 12/08/21 @ 18:18 by Blaine Lu MD) Father Cancer Social History (Updated 12/12/21 @ 12:31 by Sha Arthur MD) Smoking and tobacco status: never smoked Alcohol intake: former Vitals/I&O/Wt Last Vital Signs Temp 97.6 F 12/12/21 10:52 Pulse 77 12/12/21 10:52 Resp 18 12/12/21 10:52 BP 157/92 12/12/21 10:52 Pulse Ox 100 12/12/21 10:52 12/11/21 12/12/21 12/12/21 22:59 06:59 14:59 Intake Total 1290 / 3630 1050 / 3630 1202.5 / 1202.5 Balance 1290 / 3630 1050 / 3630 1202.5 / 1202.5 Physical Exam Narrative: EXAM NARRATIVE: The patient was encountered in his hospital room. He does not appear to be in any distress. He also does not seem very interested in discussing his medical issues, however. The pupils are equal. The lungs are clear anteriorly. The heart is regular. The abdomen is softly distended and he has some scattered diffuse tenderness but no peritoneal signs. He has a incisional hernia in the periumbilical region at the site of his previous robotic surgery. The hernia is easily reducible. The extremities reveal no edema. Neurologically the patient appears to be grossly intact. Data : 12/12/21 04:32 12/12/21 04:32 KUB: Radiologist's impression: Abdominal x-ray 12/12/2021 impression: Worsening small bowel obstruction. A&P Assessment and plan (1) Abdominal distention: The patient has started passing flatus again. He clearly is not completely obstructed clinically. I think the increased air is a consequence of the laxatives that he has taken recently. Hopefully with more time, he will be able to evacuate all of this. Agree with n.p.o. status, avoiding further narcotics and holding laxatives. Status: Acute (2) Incisional hernia: The patient has an incisional hernia in the periumbilical region, but it is soft and easily reducible. I do not think it has much to do with his issue at the present time. Status: Acute Consult Attestations Medical Necessity Statement: See admitting service's notation. Coding Level of Care Code Acute Rehabilitation Program Manager for [facility] Diagnoses Abdominal distention R14.0 Incisional hernia K43.2
--- NOTE | 2021-12-12 13:45 | PM.PN ---
Subjective Subjective: Interval history: Patient is seen to be ambulating in the room independently. Steady on his feet. IV fluid discontinued today due to interim development of mild swelling over bilateral feet. States he feels slightly more distended and bloated compared to yesterday however he has had 3 bowel movements which have been semisolid and is currently passing flatus. No further episodes of vomiting today. X-ray abdomen taken this morning shows worsening ileus. Medications: Reviewed: Yes Vitals/I&O/Wt Last Vital Signs Temp 97.6 F 12/12/21 10:52 Pulse 77 12/12/21 10:52 Resp 18 12/12/21 10:52 BP 157/92 12/12/21 10:52 Pulse Ox 100 12/12/21 10:52 12/11/21 12/12/21 12/12/21 22:59 06:59 14:59 Intake Total 1290 / 2580 1050 / 3630 1202.5 / 1202.5 Balance 1290 / 2580 1050 / 3630 1202.5 / 1202.5 Physical Exam Narrative: EXAM NARRATIVE: GEN: Awake, alert and oriented, no acute distress CVS: S1S2 N RS: CTA B/L Abd: Soft, mildly distended, sluggish bowel sounds QUALITY AUDITOR: no focal neuro deficits Data : 12/12/21 04:32 12/12/21 04:32 A&P Assessment and plan (1) Pancreatitis: - 46-year-old gentleman admitted with acute pancreatitis most likely secondary to alcohol, although it has been a couple of weeks since he drank according to his report. - Clinically improving though has had pooor passage of flatus and feces. -Additionally also with small bowel ileus suspected to be secondary from pancreatitis. Abdominal x-ray with increasing distention today, will consult general surgery Patient states he has had 3 bowel movements since yesterday semisolid, passing some flatus however does feel more bloated and abdominal appearing distended in the epigastric area. -Avoid opiates Status: Acute (2) HTN (hypertension): Status: Acute Attestations Medical Necessity Statement*: General surgery for worsening SBO/ ileus. Coding Level of Care Code Acute Wedding Planning Internship for [facility] Diagnoses Pancreatitis K85.90 HTN (hypertension) I10
[2021-12-12 16:00] VITALS: BP 154/87; PULSE 71; RESP 18; TEMP 36.8; O2SAT 94
[2021-12-12] MEDS: acetaminophen 325 mg Tablet 650 MG PO (17:54)
[2021-12-12] MEDS: TRAMadol 50 mg Tablet PO (17:54)
[2021-12-12 19:59] VITALS: BP 146/82; PULSE 75; RESP 16; TEMP 37.1; O2SAT 98
[2021-12-12] MEDS: enoxaparin 40 mg/0.4 mL Syringe SUBCUT (22:48)
[2021-12-13] VITALS (7 sets, daily range): BP systolic 130–158; BP diastolic 69–86; PULSE 68–78; RESP 14–18; TEMP 36.3–36.7; O2SAT 96–100
[2021-12-13] MEDS: piperacillin-tazobactam 3.375 GM in sodium chloride 0.9% (plus) 50 ML IV ×2 (00:23→09:12)
[2021-12-13] MEDS: acetaminophen 325 mg Tablet 650 MG PO ×3 (00:30→23:55)
[2021-12-13] MEDS: TRAMadol 50 mg Tablet PO (00:30)
[2021-12-13 05:50] LABS: Basophils # 0.1 10^3/uL (0.0-0.1); Basophils % 0.8 %; Eosinophils # 0.3 10^3/uL (0.0-0.8); Eosinophils % 4.7 %; Hematocrit 38.2 % (42.0-52.0); Hemoglobin 13.4 g/dL (11.7-16.6); Lymphocytes # 1.4 10^3/uL (0.8-4.8); Lymphocytes % 19.2 %; Mean Corpuscular HGB Conc 35.1 g/dL (30.0-36.0); Mean Corpuscular Hemoglobin 40.2 pg (28.0-34.0); Mean Corpuscular Volume 114.7 fl (80-94); Mean Platelet Volume 9.9 fL (7.4-10.4); Monocytes # 0.7 10^3/uL (0.2-0.9); Monocytes % 9.3 %; Neutrophils # 4.77 10^3/uL (1.8-7.7); Neutrophils % 65.5 %; Nucleated Red Blood Cells % 0 %; Platelet Count 268 10^3/cmm (130-400); Red Blood Count 3.33 10^6/uL (4.1-5.3); Red Cell Distribution Width 11.3 % (12.1-15.1); White Blood Count 7.3 10^3/uL (4.0-10.0)
[2021-12-13 06:08] LABS: Anion Gap 18.7 (5-19); Blood Urea Nitrogen 12 mg/dL (6-20); Calcium 9.2 mg/dL (8.5-10.5); Carbon Dioxide 17 mmol/L (22-29); Chloride 103 mmol/L (98-107); Glomerular Filtration Rate 103.2 mL/min (90-130); Glucose 61 mg/dL (65-115); Osmolality Calculated 278 mOsm/kg (285-295); Potassium 3.7 mmol/L (3.5-5.1); Sodium 135 mmol/L (136-145)
[2021-12-13] MEDS: pantoprazole 40 mg SDV IVP ×2 (09:13→23:47)
[2021-12-13] MEDS: fluticasone nasal spray 16gm Btl 1 SPRAY NASAL (09:13)
--- NOTE | 2021-12-13 09:16 | PM.PN ---
Subjective Subjective: Interval history: I am feeling a lot better today. The patient says he is passing a lot of flatus. He only had a very small bowel movement last night. He is hungry. Vitals/I&O/Wt Last Vital Signs Temp 97.5 F L 12/13/21 04:00 Pulse 68 12/13/21 04:00 Resp 14 12/13/21 04:00 BP 154/84 12/13/21 04:00 Pulse Ox 98 12/13/21 04:00 12/12/21 12/13/21 12/13/21 22:59 06:59 14:59 Intake Total 50 / 1302.5 50 / 1302.5 Balance 50 / 1302.5 50 / 1302.5 Physical Exam Narrative: EXAM NARRATIVE: Bowel sounds remain somewhat bowel sounds remain somewhat hyperactive. He still seems a little distended to me but has minimal tenderness Data : 12/13/21 04:29 12/13/21 04:29 A&P Assessment and plan (1) Abdominal distention: The patient is feeling quite a bit better today. I am at least going to allow him some clear liquids and we will follow his progress clinically. Status: Acute (2) Incisional hernia: The patient has an incisional hernia in the periumbilical region, but it is soft and easily reducible. I do not think it has much to do with his issue at the present time. Status: Acute Attestations Medical Necessity Statement*: See admitting service's notation. Coding Level of Care Code Acute Shoe Repair Supervisor for [facility] Diagnoses Abdominal distention R14.0 Incisional hernia K43.2
[2021-12-13] MEDS: ketorolac 30 mg/mL INJ 15 MG IVP (09:19)
--- NOTE | 2021-12-13 14:01 | PM.PN ---
Subjective Subjective: Interval history: Hospital today, seems like he is passing more flatus. Small bowel movement this morning. attempting to advance diet to clears today. Medications: Reviewed: Yes Vitals/I&O/Wt Last Vital Signs Temp 97.7 F 12/13/21 12:00 Pulse 74 12/13/21 12:00 Resp 18 12/13/21 12:00 BP 158/86 12/13/21 12:00 Pulse Ox 98 12/13/21 12:00 12/12/21 12/13/21 12/13/21 22:59 06:59 14:59 Intake Total 50 / 1252.5 50 / 1302.5 240 / 240 Balance 50 / 1252.5 50 / 1302.5 240 / 240 Physical Exam Narrative: EXAM NARRATIVE: GEN: Awake, alert and oriented, no acute distress CVS: S1S2 N RS: CTA B/L Abd: Soft, appears to be less distended today. USPS LETTER CARRIER: no focal neuro deficits Data : 12/13/21 04:29 12/13/21 04:29 A&P Assessment and plan (1) Pancreatitis: - 46-year-old gentleman admitted with acute pancreatitis most likely secondary to alcohol, although it has been a couple of weeks since he drank according to his report. - Clinically improving though has had pooor passage of flatus and feces. -Additionally also with small bowel ileus suspected to be secondary from pancreatitis. Abdominal distention appears to be better today Passing flatus one small bowel movement -Avoid opiates Trial of clear liquid diet today with goal to advance as tolerated. Status: Acute (2) HTN (hypertension): Resume home dose of lisinopril Status: Acute Plan Discontinue Zosyn as no other evidence of infection at this time Attestations Medical Necessity Statement*: Advance diet today, monitor for improvement and tolerance of diet. Coding Level of Care Code Acute Member Services Coordinator for [facility] Diagnoses Pancreatitis K85.90 HTN (hypertension) I10
[2021-12-13 14:33] LABS: Glucose Point of Care 83 mg/dL (70-110)
[2021-12-13] MEDS: enoxaparin 40 mg/0.4 mL Syringe SUBCUT (23:47)
[2021-12-14] VITALS: BP 159/71; PULSE 75; RESP 18; TEMP 36.6; O2SAT 97
[2021-12-14 04:00] VITALS: BP 146/66; PULSE 72; RESP 18; O2SAT 96
[2021-12-14 06:52] LABS: Alanine Aminotransferase 8 U/L (0-41); Alkaline Phosphatase 39 IU/L (40-130); Anion Gap 18.5 (5-19); Aspartate Amino Transferase 16 U/L (0-40); Blood Urea Nitrogen 12 mg/dL (6-20); Calcium 8.9 mg/dL (8.5-10.5); Carbon Dioxide 16 mmol/L (22-29); Chloride 100 mmol/L (98-107); Globulin 2.5 g/dL (1.3-4.6); Glomerular Filtration Rate 103.2 mL/min (90-130); Glucose 69 mg/dL (65-115); Osmolality Calculated 270 mOsm/kg (285-295); Potassium 3.5 mmol/L (3.5-5.1); Sodium 131 mmol/L (136-145); Total Bilirubin 0.6 mg/dL (0.15-1.2); Total Protein 5.5 g/dL (6.6-8.7)
[2021-12-14 07:03] VITALS: BP 143/81; PULSE 75; RESP 16; TEMP 36.6; O2SAT 100
--- NOTE | 2021-12-14 07:48 | P.PN_ITS ---
Subjective Subjective: Interval history: The patient continues to pass flatus and has had multiple bowel movements. He would like some regular food. Vitals/I&O/Wt Last Vital Signs Temp 98 F 12/14/21 07:03 Pulse 75 12/14/21 07:03 Resp 16 12/14/21 07:03 BP 143/81 12/14/21 07:03 Pulse Ox 100 12/14/21 07:03 12/13/21 12/14/21 12/14/21 22:59 06:59 14:59 Intake Total 290 / 1010 480 / 1010 Output Total 880 / 1280 Balance 290 / -270 -400 / -270 Physical Exam Narrative: EXAM NARRATIVE: Abdomen is nontender. Seems less distended. Data : 12/13/21 04:29 12/14/21 06:06 A&P Assessment and plan (1) Abdominal distention: Continues to improve. Regular diet. If the patient tolerates this I think he can probably be safely discharged. Status: Acute (2) Incisional hernia: The patient has an incisional hernia in the periumbilical region, but it is soft and easily reducible. I do not think it has much to do with his issue at the present time. Status: Acute Attestations Medical Necessity Statement*: See admitting service's notation. Coding Level of Care Code Acute Linux Security Administrator for [facility] Diagnoses Abdominal distention R14.0 Incisional hernia K43.2
[2021-12-14] MEDS: fluticasone nasal spray 16gm Btl 1 SPRAY NASAL (09:24)
[2021-12-14] MEDS: lisinopril 10 mg Tablet PO (09:24)
[2021-12-14] MEDS: pantoprazole 40 mg SDV IVP (09:24)
[2021-12-14 11:36] VITALS: BP 143/77; PULSE 77; RESP 16; TEMP 36.7; O2SAT 99
--- NOTE | 2021-12-14 15:14 | P.DS_ITS ---
Discharge Providers Date of Admission: 12/08/21 17:56 Date of Discharge: December 14, 2021 Attending Provider at Admission: Blaine Lu MD Attending Provider at Discharge: Sandy Unger MD Consults: Dr. Arthur/ general surgery Primary Care Provider: KORTNEY Genao Diagnoses at Discharge Discharge Diagnosis (1) Abdominal distention: Status: Acute (2) Incisional hernia: Status: Acute (3) Pancreatitis: Status: Acute Reason for Visit Reason for Visit: colon issue Hospital Course Hospital Course Ozzie Gavin is a 46 year old male with a past past medical history of diverticulitis status post colectomy, who presented to [facility] due to a few day history of abdominal pain, nausea, vomiting, feeling unwell.? He was found to have evidence of acute pancreatitis and duodenitis during course of admission. He received a treatment course with empiric antibiotics with Zosyn. On serial abdominal exams he had increasing abdominal distention, x-ray of the abdomen revealed increasing distention and possible ileus versus SBO. General surgery was consulted. Patient improved with conservative management with IV fluids, bowel rest, . He was given a trial of clears on December 13, 2021 when today his diet was advanced to a regular diet which he tolerated well. He is currently being discharged in improved condition with recommendations to continue a bland regular diet and advance as tolerated. Follow-up with primary care physician in 7 to 10 days. Physical Exam Narrative: EXAM NARRATIVE: GEN: Awake, alert and oriented, no acute distress CVS: S1S2 N RS: CTA B/L Abd: Soft, nt/nd , bs+ [employer]ACHINE: no focal neuro deficits Discharge Data Studies Completed and Pending Completed Studies During Hospitalization Category Date Time Status CT abdomen pelvis w con* [id number] Urgent Cat Scan 12/08/21 15:50 Completed XR KUB portable [id number] Routine Exams 12/10/21 07:13 Completed XR abdomen 1V* [id number] Stat Exams 12/12/21 08:51 Completed XR chest 1V portable [id number] AM LABS Exams 12/12/21 04:00 Completed Pending at discharge Category Date Time Status Clostridioides Difficile PCR Routine Lab 12/08/21 21:56 Ordered Enteric Bacterial Panel by PCR Routine Lab 12/08/21 21:56 Ordered Enteric Parasite Panel by PCR Routine Lab 12/08/21 21:56 Ordered Immunochemical Fecal OCB Routine Lab 12/08/21 21:56 Ordered Lactoferrin Routine Lab 12/08/21 21:56 Ordered Radiology Impressions Abdomen/Pelvis CT 12/08/21 15:50 IMPRESSION: 1. Findings are suspicious for acute pancreatitis involving the pancreatic head with retroperitoneal fluid and stranding. Less likely, this could represent duodenitis. Clinical correlation is recommended. 2. Diverticulosis of the colon without diverticulitis. COMMENTS: Consistent with the [employer]'s Incidental Findings Committee white paper (J Am Tenisha Radiol 2018): Any incidental renal lesion less than 1 cm or classified as too small to characterize, or any incidental cystic renal lesion characterized as simple-appearing, is likely benign. No follow-up imaging is recommended for these lesions per consensus recommendations based on imaging criteria. KUB X-Ray 12/10/21 07:13 IMPRESSION: Mild distension of the small bowel and colon. Given findings on recent CT this most likely relates to ileus. Chest X-Ray 12/12/21 04:00 Impression: 1. Cardiomegaly but no definite pleural effusion. 2. Probable colonic ileus. Abdomen X-Ray 12/12/21 08:51 Impression: Worsening small bowel obstruction. Laboratory Results WBC 7.3 10^3/uL (4.0-10.0) 12/13/21 04:29 RBC 3.33 10^6/uL (4.1-5.3) L 12/13/21 04:29 Hgb 13.4 g/dL (11.7-16.6) 12/13/21 04:29 Hct 38.2 % (42.0-52.0) L 12/13/21 04:29 MCV 114.7 fl (80-94) H 12/13/21 04:29 MCH 40.2 pg (28.0-34.0) H 12/13/21 04:29 MCHC 35.1 g/dL (30.0-36.0) 12/13/21 04:29 RDW 11.3 % (12.1-15.1) L 12/13/21 04:29 Plt Count 268 10^3/cmm (130-400) 12/13/21 04:29 MPV 9.9 fL (7.4-10.4) 12/13/21 04:29 Neut % (Auto) 65.5 % 12/13/21 04:29 Lymph % (Auto) 19.2 % 12/13/21 04:29 [place] % (Auto) 9.3 % 12/13/21 04:29 Eos % (Auto) 4.7 % 12/13/21 04:29 Baso % (Auto) 0.8 % 12/13/21 04:29 Neut # (Auto) 4.77 10^3/uL (1.8-7.7) 12/13/21 04:29 Lymph # (Auto) 1.4 10^3/uL (0.8-4.8) 12/13/21 04:29 [place] # (Auto) 0.7 10^3/uL (0.2-0.9) 12/13/21 04:29 Eos # (Auto) 0.3 10^3/uL (0.0-0.8) 12/13/21 04:29 Baso # (Auto) 0.1 10^3/uL (0.0-0.1) 12/13/21 04:29 Nucleated RBC % (auto) 0 % 12/13/21 04:29 Nucleated RBCs # 0.0 /100WBC 12/13/21 04:29 Sodium 131 mmol/L (136-145) L 12/14/21 06:06 Potassium 3.5 mmol/L (3.5-5.1) 12/14/21 06:06 Chloride 100 mmol/L (98-107) 12/14/21 06:06 Carbon Dioxide 16 mmol/L (22-29) L 12/14/21 06:06 Anion Gap 18.5 (5-19) 12/14/21 06:06 BUN 12 mg/dL (6-20) 12/14/21 06:06 Creatinine 0.8 mg/dL (0.7-1.2) 12/14/21 06:06 GFR Calculation 103.2 mL/min (90-130) 12/14/21 06:06 Glucose 69 mg/dL (65-115) 12/14/21 06:06 POC Glucose 83 mg/dL (70-110) 12/13/21 14:29 Calculated Osmolality 270 mOsm/kg (285-295) L 12/14/21 06:06 Lactate 3.0 mmol/L (0.5-2.2) H 12/08/21 17:44 Calcium 8.9 mg/dL (8.5-10.5) 12/14/21 06:06 Phosphorus 3.4 mg/dL (2.5-4.5) 12/11/21 04:13 Magnesium 2.3 mg/dL (1.7-2.3) 12/11/21 04:13 Total Bilirubin 0.6 mg/dL (0.15-1.2) 12/14/21 06:06 AST 16 U/L (0-40) 12/14/21 06:06 ALT 8 U/L (0-41) 12/14/21 06:06 Alkaline Phosphatase 39 IU/L (40-130) L 12/14/21 06:06 C-Reactive Protein 63.4 mg/L (0.0-4.9) H 12/11/21 04:13 Total Protein 5.5 g/dL (6.6-8.7) L 12/14/21 06:06 Albumin 3.0 g/dL (3.5-5.2) L 12/14/21 06:06 Globulin 2.5 g/dL (1.3-4.6) 12/14/21 06:06 Lipase 79 U/L (13-60) H 12/11/21 04:13 Lipase Cancelled 12/11/21 04:13 Urine Color [place] (Yellow) 12/10/21 11:40 Urine Appearance Turbid (CLEAR) 12/10/21 11:40 Urine pH 5 (5-7) 12/10/21 11:40 Ur Specific [place] 1.020 (1.005-1.030) 12/10/21 11:40 Urine Protein 1+ (Negative) H 12/10/21 11:40 Urine Glucose (UA) Norm (Normal) 12/10/21 11:40 Urine Ketones 1+ (Negative) H 12/10/21 11:40 Urine Blood Neg (Negative) 12/10/21 11:40 Urine Nitrate Negative (Negative) 12/10/21 11:40 Urine Bilirubin 1+ (Negative) H 12/10/21 11:40 Urine Urobilinogen 1 mg/dL (Negative) H 12/10/21 11:40 Ur Leukocyte Esterase Negative (Negative) 12/10/21 11:40 Urine RBC None /hpf (0-2) 12/10/21 11:40 Urine WBC None /hpf (0-5) 12/10/21 11:40 Ur Squamous Epith Cells None /hpf (0-5) 12/10/21 11:40 Amorphous Sediment 4+ /hpf 12/10/21 11:40 Urine Bacteria Trace /hpf (NONE) 12/10/21 11:40 SARS-CoV-2 Ag (Rapid) Negative (Negative) 12/08/21 17:22 Vitals Last Vital Signs Temp 98.1 F 12/14/21 11:36 Pulse 77 12/14/21 11:36 Resp 16 12/14/21 11:36 BP 143/77 12/14/21 11:36 Pulse Ox 99 12/14/21 11:36 Discharge Plan Discharge Patient Disposition: Home Condition: Stable Prescriptions: Continued lisinopril 10 mg tablet 10 mg PO DAILY 0RF omeprazole 20 mg Capsule,Delayed Release(Dr/Ec) 20 mg PO DAILY 0RF Discontinued NyQuil Liquicaps Capsule 2 cap PO BEDTIME PRN (Reason: Cold Symptoms) 0RF Discharge Orders: Discharge Order (Routine); Ordered 12/14/21 Ordered By: Sandy Unger Referrals: Floridalma Santana, [employer] [Primary Care Provider] - 7-10 days Discharge Diet: Advance as tolerated and GI Soft Discharge Activity: Resume usual activity Discharge Attestations Time Spent in Discharge Care*: less than 30 min Quality Metrics Clinical Quality Measures [ No reported AMI, CVA or VTE this stay] Coding Level of Care Code Acute Chg FW DC note Diagnoses Abdominal distention R14.0 Incisional hernia K43.2 Pancreatitis K85.90
[2021-12-14 15:35] VITALS: BP 158/98; PULSE 87; RESP 16; TEMP 36.6; O2SAT 96
[2021-12-14 17:04] VITALS: BP 158/98; PULSE 87; RESP 16; TEMP 36.6; O2SAT 96
== END 2021-12-14 16:45 | disposition home or self-care (01) | DRG 439 ==
LOC: ER 19:21 → ER IP 20:52 → MEDSURG 12-09 11:59
PROVIDERS: Family Medicine; Surgery; Admitting Provider Family Medicine; Emergency Provider Emergency Medicine; PCP Nurse Practitioner; Visit Provider Student in an Organized Health Care Education/Training Program
DX: K85.20 Alcohol induced acute pancreatitis without necrosis or infection (principal); E87.1 Hypo-osmolality and hyponatremia; K56.7 Ileus, unspecified; F10.11 Alcohol abuse, in remission; E78.5 Hyperlipidemia, unspecified; I10 Essential (primary) hypertension; Z90.49 Acquired absence of other specified parts of digestive tract; E86.0 Dehydration; K43.2 Incisional hernia without obstruction or gangrene
CPT/HCPCS: 12345; 36415; 36416; 71045; 74018; 74177; 80048; 80053; 81001; 81003; 82962; 83605; 83690; 83735; 84100; 85025; 86140; 87426; 96361; 96372; 96374; 96375; 96376; 99285; C9113; G0378; J1650; J1885; J2270; J2405; J2543; J7030; Q9967

== ENCOUNTER 2021-12-26 09:33 | Outpatient (CLI) | payer OTHER, SELFPAY ==
--- NOTE | 2021-12-26 09:44 | XR_ITS ---
WS: [id number] CHEST 2 VIEWS HISTORY: Asthmatic bronchitis. COMPARISON: 12/12/2021 Lungs: Lung volumes are slightly decreased but improved since the prior study. There is very minimal pulmonary congestion. Small bilateral pleural effusions. No pneumothorax. Cardiac size: Normal. Mediastinum/Aorta: Normal mediastinum. Bones: Normal. XR/XR chest 2V* [id number] IMPRESSION: 1. Interval development of small bilateral pleural effusions and mild pulmonar y congestion. 2. No pneumonia.
== END 2021-12-26 09:34 | disposition home or self-care (01) ==
PROVIDERS: PCP Nurse Practitioner Family; Visit Provider Nurse Practitioner Family
DX: J45.909 Unspecified asthma, uncomplicated (principal); J90 Pleural effusion, not elsewhere classified
CPT/HCPCS: 71046

== ENCOUNTER 2022-03-01 08:17 | Outpatient (CLI) | payer OTHER, SELFPAY ==
--- NOTE | 2022-03-01 08:35 | CT_ITS ---
WS: [id number] CT CHEST WITH INTRAVENOUS CONTRAST HISTORY: PULMONARY effusion, cough and dyspnea. TECHNIQUE: Contiguous 5 mm axial imaging performed on the thorax. Coronal and sagittal reformats are submitted. All CT scans at [facility] use at least one of these dose optimization techniques: automated exposure control; mA and/or kV adjustment per patient size (includes targeted exams where dose is matched to clinical indication); or iterative reconstruction. CONTRAST: Omnipaque 300; 95 mL IV. DLP: 765.63 mGy.cm COMPARISON: Chest radiograph 12/26/2021 Lungs and central airway: There are a few scattered granulomatous throughout both lungs. No suspiciou s mass or pneumonia. Pleura: Normal. No pleural effusion. Heart and pericardium: Normal size heart with no pericardial effusion. Mediastinum and valerie: No mediastinum or hilar adenopathy. Vessels: Normal size thoracic aorta. Normal size pulmonary artery. Aberrant RIGHT subclavian artery c rosses the midline posterior to the esophagus. Bovine aortic arch. Chest wall and lower neck: No soft tissue masses. Upper abdomen: Small hiatal hernia. There are a few scattered hepatic and splenic granulomatous. Visu alized liver and gallbladder are negative. Osseous structures: Increase in thoracic kyphosis. Advanced degenerative changes in the mid to lower thoracic spine. Disc spaces are narrowed with large bridging osteophytes. CT/CT chest w con* [id number] IMPRESSION: 1. No pulmonary mass or nodule. 2. Prior granulomatous disease. 3. Aberrant RIGHT subclavian artery, normal variant. 4. No residual pleural effusions.
[2022-03-01] MEDS: iohexol 300 mg/mL 100 mL Btl IV (09:25)
== END 2022-03-01 08:18 | disposition home or self-care (01) ==
PROVIDERS: PCP Nurse Practitioner Family; Visit Provider Nurse Practitioner Family
DX: J91.8 Pleural effusion in other conditions classified elsewhere (principal); R05.9 Cough, unspecified
CPT/HCPCS: 71260

== ENCOUNTER 2023-04-03 14:47 | Outpatient (CLI) | payer BC, SELFPAY ==
--- NOTE | 2023-04-03 15:18 | MR_ITS ---
WS: [id number] MRI LEFT KNEE NONCONTRAST TECHNIQUE: Axial PD, coronal PD fat sat, coronal PD, sagittal PD, and sagittal PD fat-sat images obta ined. CLINICAL INFORMATION: DERANGEMENT OF LEFT KNEE COMPARISON: None. FINDINGS: Distal quadriceps and patella tendons are intact. Hypertrophic patella. Small suprapatellar effusion. Moderate chondromalacia patella. Diffuse soft tissue edema about the knee. ACL and PCL appear intact. Small suspected intrasubstance tears involving the distal ACL the tibial i nsertion tibial avulsion fracture involving the anterior intercondylar notch anterior to the ACL inse rtion. Some of this may be chronic and degenerative. Diffuse edema with extensive contusion involving the medial femoral condyle. Fluid and edema deep to the medial collateral ligament which appears intact compatible with grade 1-2 injury. Normal lateral collateral ligament. Normal popliteal fossa. Normal medial and lateral patellar retinaculum. Chronic thinning of the medial and lateral meniscus. No acute appearing meniscal tears. Mild peripheral extrusion of the medial meniscus. MR/MR knee LT wo con* [id number] IMPRESSION: 1. Extensive edema within the medial femoral condyle extending to the articula r surface likely due to recent contusion. Diffuse soft tissue edema about the k nee with moderate suprapatellar effusion. 2. Partial intrasubstance tear of the anterior ACL at the tibial insertion. AC L is intact. PCL is intact. 3. Avulsion fracture involving the anterior intercondylar tibia just anterior to the ACL insertion. Some of this may be degenerative. 4. No acute appearing meniscal tears. Chronic thinning of the menisci 5. Grade IV chondromalacia medial joint compartment. 6. Moderate to advanced chondromalacia patella. 7. Grade 1-2 injury medial collateral ligament with fluid and edema deep to th e MCL. Outbridge grading: grade IV: full-thickness cartilage loss with underlying bone reactive changes
== END 2023-04-03 14:48 | disposition home or self-care (01) ==
PROVIDERS: PCP Nurse Practitioner Family; Visit Provider Physician Assistant
DX: S83.512A Sprain of anterior cruciate ligament of left knee, initial encounter (principal); M23.92 Unspecified internal derangement of left knee; M25.462 Effusion, left knee; S82.112A Displaced fracture of left tibial spine, initial encounter for closed fracture; S89.82XA Other specified injuries of left lower leg, initial encounter; X58.XXXA Exposure to other specified factors, initial encounter; M22.42 Chondromalacia patellae, left knee
CPT/HCPCS: 73721